=== PATIENT | female | born 1965 | race Caucasian/White ===

== ENCOUNTER → 2017-07-23 13:33 | Outpatient (CLI) | payer BC, SELFPAY ==
--- NOTE | 2017-07-23 13:37 | US_ITS ---
MM Dig mamm BI DX w/CAD, US breast RT complete, US breast LT complete INDICATION: 6 month follow-up abnormal mammogram ORDERING PHYSICIAN: Nehal Herring PATIENT AGE: 51 years COMPARISON: 12/26/2016 TECHNIQUE: Standard images performed along with spot compression views and bilateral breast ultrasound FINDINGS: There is dense fibroglandular tissue which decreases sensitivity of mammography. Right breast: Biopsy clip is once again noted in the upper outer aspect of the right breast. There is a nodular density once again noted in the outer aspect of the right breast at 8 mm adjacent to the clip. There is some asymmetric density in the central aspect of the right breast. This appears somewhat less apparent on the day study compared to 12/26/2016. This however is been present since 12/02/2013 likely related to fibroglandular tissue. Right breast ultrasound: 9 mm complex cyst at 5:00 near the nipple. 3 mm x 5 mm complex cyst 9:00, 7 mm cyst at 10:00 which may correspond to the mammographic abnormality. 9 x 5 mm area of decreased echogenicity at 9:00 which may be due to a complex cyst not significantly changed Left breast: Asymmetric density in the medial aspect of the left breast appear to compress out as fibroglandular tissue. Biopsy clip is present in the outer aspect of the left breast. No malignant appearing mass or malignant. Microcalcification. Left breast ultrasound: Scattered small cysts: 4 mm at 2:00, 4 mm at 2:00, 4 mm 4:00. IMPRESSION: No convincing evidence of malignancy. Probably benign findings. Complex cyst are present in the right breast. BI-RADS Category: 3 Benign Finding Short Term Follow-up RECOMMENDED FOLLOW-UP: 6M - 6 MONTH FOLLOW-UP Suggest continued bilateral mammographic follow-up in 6 months along with right breast ultrasound (A letter has been sent to the patient regarding results of the study.)
== END ==
PROVIDERS: Family Provider Internal Medicine Adolescent Medicine; PCP Internal Medicine Adolescent Medicine; Visit Provider Nurse Practitioner Family
DX: R92.8 Other abnormal and inconclusive findings on diagnostic imaging of breast (principal)
CPT/HCPCS: 76641; 77066

== ENCOUNTER → 2018-02-25 13:35 | Outpatient (CLI) | payer BC, SELFPAY ==
--- NOTE | 2018-02-25 13:41 | MM_ITS ---
MM Dig mamm BI DX w/CAD, US breast LT complete, US breast RT complete INDICATION: Follow-up abnormal mammogram ORDERING PHYSICIAN: Mariposa House PATIENT AGE: 52 years COMPARISON: None TECHNIQUE: Bilateral mammogram along with bilateral spot compression views and bilateral breast ultrasound FINDINGS: There is dense fibroglandular tissue bilaterally which decreases the sensitivity of mammography. Right breast: There is an 8 mm nodular density in the outer aspect of the right breast adjacent to a clip as previously described not significantly changed. No malignant appearing mass or malignant appearing microcalcifications.. Right breast ultrasound: 5 mm x 6 mm cyst is present at 10:00. An 8 mm hypoechoic nodule noted at 9:00 outer similar to the previous exam and similar to an older ultrasound of 12/26/2016] percent complex cyst. Left breast: Asymmetric density is present in the medial aspect of the left breast does appear to compress out as fibroglandular tissue.. Left breast ultrasound: Small cyst at 6:00 at 3 mm, hypoechoic nodule 4:00 at 5 mm. No suspicious nodules evident. IMPRESSION: No change with no convincing evidence of malignancy. Scattered asymmetric densities and bilateral breast cysts. Suggest reason screening mammogram in 6 months BI-RADS Category: 2 Benign Finding(s) RECOMMENDED FOLLOW-UP: 6M - 6 MONTH FOLLOW-UP (A letter has been sent to the patient regarding results of the study.)
== END ==
PROVIDERS: PCP Internal Medicine Adolescent Medicine; Visit Provider Obstetrics & Gynecology Gynecology
DX: R92.8 Other abnormal and inconclusive findings on diagnostic imaging of breast (principal)
CPT/HCPCS: 76641; 77066

== ENCOUNTER → 2018-10-17 11:13 | Outpatient (CLI) | payer BC, SELFPAY ==
--- NOTE | 2018-10-17 11:18 | XR_ITS ---
PROCEDURE: XR CHEST 2V CLINICAL HISTORY: COUGH,H/O ATRIAL FLUTTER Coughing congestion previous smoker COMPARISON: No exams were available for comparison FINDINGS: Prior CABG. Mild cardiomegaly without failure. Lungs are free of acute infiltrate. No acute bony findings. IMPRESSION: Prior median sternotomy with cardiomegaly Dictated by: Jace Ortiz MD 10/17/2018 11:33 Electronically signed by Jace Ortiz MD in [place] 10/17/2018 11:33
== END ==
PROVIDERS: PCP Internal Medicine Adolescent Medicine; Visit Provider Nurse Practitioner Family
DX: R05 Cough (principal); Z86.79 Personal history of other diseases of the circulatory system
CPT/HCPCS: 71046

== ENCOUNTER → 2019-11-12 10:18 | Outpatient (CLI) | payer BC, SELFPAY ==
--- NOTE | 2019-11-12 10:22 | MM_ITS ---
PROCEDURE: MM DIG SCREENING MAMM BI W/CAD Digital Breast Tomosynthesis Included CLINICAL INDICATION: SCREENING There is no personal or family history of breast cancer. There have been biopsies on each breast for benign disease. COMPARISON: MG DMDBAV DIG MAMM-DX LORRAINE W/AVWS W/CAD from 12/26/2016 MG DXBI MM Dig mamm BI DX w/CAD from 07/23/2017 MG DXBI MM Dig mamm BI DX w/CAD from 02/25/2018 TECHNIQUE: Standard CC and MLO images and 3D Tomosynthesis was obtained. R2 CAD reviewed. FINDINGS: Moderate diffuse fibroglandular densities are seen throughout both breast and the findings are bilateral and symmetrical. Again noted is a well-defined smoothly marginated nodular lesion adjacent to the biopsy clip right breast which is stable. There is no new or suspicious lesion in either breast and no suspicious microcalcifications. IMPRESSION: Moderate diffuse breast density with no suspicious lesions seen BI-RAD Category: 2 Benign Finding(s) FOLLOW-UP: 1YR 1 Year Follow-up (A letter has been sent to the patient regarding results of the study.) Dictated by: Dr. Reid Sarmiento MD 11/17/2019 11:55 Dr. Reid Sarmiento MD in [place] 11/17/2019 11:55
== END ==
PROVIDERS: PCP Internal Medicine Adolescent Medicine; Visit Provider Obstetrics & Gynecology Gynecology
DX: Z12.31 Encounter for screening mammogram for malignant neoplasm of breast (principal)
CPT/HCPCS: 77063; 77067

== ENCOUNTER → 2020-08-04 10:27 | Outpatient (CLI) | payer BC, SELFPAY ==
--- NOTE | 2020-08-04 10:34 | XR_ITS ---
PROCEDURE INFORMATION: Exam: XR Left Foot Complete; Alignment Exam date and time: 08/04/2020 10:34 AM Age: 54 years old Clinical indication: Pain; Foot; Left TECHNIQUE: Imaging protocol: XR Left foot. Views: 3 or more views. COMPARISON: No relevant prior studies available. FINDINGS: Bones/joints: Minimal degenerative spurring of the 1st MTP joint and interphalangeal joints. Chronic dorsal spurring of the talonavicular joint. No joint space erosion. Small to moderate-sized plantar calcaneal enthesophyte. No acute fracture. No dislocation. Soft tissues: Indeterminate 1 mm radiopacity projecting over the forefoot, in the webspace between the 3rd and 4th toes. IMPRESSION: 1. Minimal forefoot degenerative changes. 2. Indeterminate 1 mm radiopacity projecting over the 3rd/4th toe web space. Request correlation for a wound or possible foreign body.
--- NOTE | 2020-08-04 10:34 | XR_ITS ---
PROCEDURE INFORMATION: Exam: XR Right Foot Complete; Alignment Exam date and time: 08/04/2020 10:34 AM Age: 54 years old Clinical indication: Pain; Foot; Right TECHNIQUE: Imaging protocol: XR Right foot. Views: 3 or more views. COMPARISON: No relevant prior studies available. FINDINGS: Bones/joints: Minimal degenerative spurring of the 1st MTP joint and interphalangeal joints. No joint space erosion. Moderate-sized plantar calcaneal enthesophyte. No acute fracture. No dislocation. Soft tissues: Normal. IMPRESSION: Minimal forefoot degenerative change. Plantar calcaneal enthesophyte.
== END ==
PROVIDERS: PCP Internal Medicine Adolescent Medicine; Visit Provider Podiatrist
DX: M79.672 Pain in left foot (principal); M79.671 Pain in right foot
CPT/HCPCS: 73630

== ENCOUNTER → 2021-01-26 07:53 | Outpatient (CLI) | payer BC, SELFPAY ==
--- NOTE | 2021-01-26 07:56 | MM_ITS ---
PROCEDURE INFORMATION: Exam: MG Bilateral Screening 3D Mammography Exam date and time: 01/26/2021 7:56 AM Age: 55 years old Clinical indication: Encounter for screening mammogram for malignant neoplasm of breast TECHNIQUE: Imaging protocol: Bilateral screening tomosynthesis and 2D mammography including computer-aided detection (CAD) when performed. COMPARISON: 1. MG MM DIG SCREENING MAMM BI W/CAD 11/12/2019 10:26 AM 2. MG DXBI MM Dig mamm BI DX w/CAD 02/25/2018 1:59 PM 3. MG DXBI MM Dig mamm BI DX w/CAD 07/23/2017 2:18 PM FINDINGS: MAMMOGRAPHY: Breast composition: The breasts are heterogeneously dense, which may obscure small masses. Mass: No suspicious masses. Architectural distortion: No suspicious distortion. Calcifications: No suspicious calcifications. Asymmetric density: None. Skin thickening: None. Axillary adenopathy: None. IMPRESSION: No mammographic evidence of malignancy. Annual screening is recommended unless otherwise clinically indicated. ASSESSMENT: BI-RADS Category 1: Negative To
== END ==
PROVIDERS: PCP Internal Medicine Adolescent Medicine; Visit Provider Obstetrics & Gynecology Gynecology
DX: Z12.31 Encounter for screening mammogram for malignant neoplasm of breast (principal)
CPT/HCPCS: 77063; 77067

== ENCOUNTER 2021-03-01 17:00 | Outpatient (RCR) | payer BC, SELFPAY | END 2021-03-01 17:05 | disposition home or self-care (01) | LOC: PT 17:00 | PROVIDERS: PCP Internal Medicine Adolescent Medicine; Visit Provider Podiatrist | DX: M72.2 Plantar fascial fibromatosis (principal) | CPT/HCPCS: 97110; 97163 ==

== ENCOUNTER → 2022-01-30 07:53 | Outpatient (CLI) | payer BC, SELFPAY ==
--- NOTE | 2022-01-30 08:07 | MM_ITS ---
PROCEDURE INFORMATION: Exam: MG Bilateral Screening 3D Mammography Exam date and time: 01/30/2022 7:57 AM Age: 56 years old Clinical indication: Screening. No family history of breast cancer. History of bilateral benign needle biopsies. TECHNIQUE: Imaging protocol: Bilateral Screening tomosynthesis and 2D mammography including computer-aided detection (CAD) when performed. COMPARISON: 1. MG MM DIG SCREENING MAMM BI W/CAD 01/26/2021 7:58 AM 2. MG MM DIG SCREENING MAMM BI W/CAD 11/12/2019 10:26 AM 3. MG DXBI MM Dig mamm BI DX w/CAD 02/25/2018 1:59 PM 4. MG DXBI MM Dig mamm BI DX w/CAD 07/23/2017 2:18 PM FINDINGS: MAMMOGRAPHY: Breast composition: The breasts are heterogeneously dense, which may obscure small masses. Mass: None. Architectural distortion: None. Calcifications: No suspicious calcifications. Asymmetric density: None. Skin thickening: None. Axillary adenopathy: None. Other: Bilateral biopsy clips. IMPRESSION: No mammographic evidence of malignancy. Annual screening is recommended unless otherwise clinically indicated. ASSESSMENT: BI-RADS Category 2: Benign
== END ==
PROVIDERS: PCP Internal Medicine Adolescent Medicine; Visit Provider Obstetrics & Gynecology Gynecology
DX: Z12.31 Encounter for screening mammogram for malignant neoplasm of breast (principal)
CPT/HCPCS: 77063; 77067

== ENCOUNTER 2023-01-25 07:27 | Day surgery (SDC) | payer BC, SELFPAY ==
[2023-01-24 12:46] VITALS: BMI 26.9
[2023-01-25 07:39] VITALS: BP 147/85; PULSE 66; RESP 18; TEMP 36.7; O2SAT 99
--- NOTE | 2023-01-25 08:23 | EXP.OP.NOTE ---
Date of procedure: 01/25/23 Pre-op Diagnosis:: 1.5 cm inclusion cyst along left shoulder apex Post-op Diagnosis:: Same Procedure performed:: Excision of 1.5 cm inclusion cyst from left shoulder apex Surgeon:: Gianluca Sevilla MD Anesthesia: local Estimated blood loss (mL): 5 Operative findings:: Lesion excised in toto Operative note:: After informed consent was obtained the patient was taken to the procedure room. Her left shoulder apex region was prepped and draped in a sterile fashion. After infiltration with local anesthetic an elliptical incision was made around the lesion. The lesion was excised in toto and passed off for pathologic evaluation. Thermal cautery was utilized to achieve hemostasis. Skin was reapproximated with interrupted 4-0 nylon in a mattress fashion. Dressings were applied and the patient was discharged in stable condition. Condition: stable Disposition: no change Specimens:: 1.5 cm left shoulder inclusion cyst Complications:: No immediate
[2023-01-25 09:11] VITALS: BP 132/77; PULSE 60; RESP 18; TEMP 37; O2SAT 98
== END 2023-01-25 09:11 | disposition home or self-care (01) ==
PROVIDERS: PCP Internal Medicine Adolescent Medicine; Visit Provider Surgery
PROC: (CPT 11402; principal; 2023-01-25 08:30)
DX: L72.0 Epidermal cyst (principal)
CPT/HCPCS: 11402

== ENCOUNTER 2023-02-16 07:53 | Outpatient (CLI) | payer BC, SELFPAY ==
--- NOTE | 2023-02-16 08:02 | MM_ITS ---
PROCEDURE INFORMATION: Exam: MG Bilateral Screening 3D Mammography Exam date and time: 02/16/2023 7:52 AM Age: 57 years old Clinical indication: Screening examination TECHNIQUE: Imaging protocol: Bilateral Screening tomosynthesis and 2D mammography including computer-aided detection (CAD) when performed. COMPARISON: 1. MG MM DIG SCREENING MAMM BI W/CAD 01/30/2022 7:57 AM 2. MG MM DIG SCREENING MAMM BI W/CAD 01/26/2021 7:58 AM FINDINGS: MAMMOGRAPHY: Breast composition: The breasts are heterogeneously dense, which may obscure small masses. Mass: None. Architectural distortion: None. Calcifications: No suspicious calcifications. Asymmetric density: None. Skin thickening: None. Axillary adenopathy: None. IMPRESSION: No mammographic evidence of malignancy. Annual screening is recommended unless otherwise clinically indicated. ASSESSMENT: BI-RADS Category 1: Negative
== END 2023-02-16 23:59 ==
LOC: RAD 07:54
PROVIDERS: PCP Internal Medicine Adolescent Medicine; Visit Provider Internal Medicine Adolescent Medicine
DX: Z12.31 Encounter for screening mammogram for malignant neoplasm of breast (principal)
CPT/HCPCS: 77063; 77067

== ENCOUNTER 2024-06-17 16:04 | Outpatient (CLI) | payer BC, SELFPAY ==
--- NOTE | 2024-06-17 16:07 | MM_ITS ---
PROCEDURE INFORMATION: Exam: MG Bilateral Screening 3D Mammography Exam date and time: 06/17/2024 4:08 PM Age: 58 years old Clinical indication: Screening. No family history of breast cancer. TECHNIQUE: Imaging protocol: Bilateral Screening tomosynthesis and 2D mammography including computer-aided detection (CAD) when performed. COMPARISON: 1. MG MM DIG SCREENING MAMM BI W/CAD 02/16/2023 7:52 AM 2. MG MM DIG SCREENING MAMM BI W/CAD 01/30/2022 7:57 AM 3. MG MM DIG SCREENING MAMM BI W/CAD 01/26/2021 7:58 AM 4. MG MM DIG SCREENING MAMM BI W/CAD 11/12/2019 10:26 AM FINDINGS: MAMMOGRAPHY: Breast composition: The breasts are heterogeneously dense, which may obscure small masses. Mass: None. Architectural distortion: None. Calcifications: No suspicious calcifications. Asymmetric density: None. Skin thickening: None. Axillary adenopathy: None. IMPRESSION: No mammographic evidence of malignancy. Annual screening is recommended unless otherwise clinically indicated. ASSESSMENT: BI-RADS Category 1: Negative.
== END 2024-06-17 23:59 | disposition home or self-care (01) ==
LOC: RAD 16:04
PROVIDERS: PCP Internal Medicine Adolescent Medicine; Visit Provider Internal Medicine Adolescent Medicine
DX: Z12.31 Encounter for screening mammogram for malignant neoplasm of breast (principal)
CPT/HCPCS: 77063; 77067